=== PATIENT | female | born 1985 | race Caucasian/White ===

== ENCOUNTER 2018-02-04 19:58 | Inpatient (IN) | payer BC, OTHER ==
[2018-02-04] MEDS ORDERED: DINOPROSTONE 10 MG VAGINAL SUPPOSITORY VG ONE (21:00)
--- NOTE | 2018-02-04 21:06 | HP ---
Past Medical History - Primary Care Physician PCP:: Foster Mooney - Admission Chief Complaint: 40 weeks, htn, obesity , for labor induction History of Present Illness: 32 yo f edc 02/04/18 40 weeks with claude 140/93, 150/100. 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 ...: 1 ...Para: 0 ...EDC by Sono: 02/04/18 - Past Surgical History Hx Myomectomy: No Hx Transabdominal Cerclage: No - Smoking History Smoking history: Never smoked Have you smoked in the past 12 months: No Aproximately how many cigarettes per day: 0 - Alcohol/Substance Use Hx Alcohol Use: No - Social History Usual Living Arrangement: Yes: With Spouse History of Recent Travel: No Home Medications - Allergies Allergies/Adverse Reactions: Allergies Allergy/AdvReac Type Severity Reaction Status Date / Time No Known Allergies Allergy Verified 01/24/18 11:43 - Home Medications Home Medications: Ambulatory Orders Vitamins (Sjr) - 1 tab PO DAILY 10/30/17 Amoxicillin - [Amoxicillin 500mg Capsule -] 500 mg PO BID 01/24/18 Review of Systems - Review of Systems Constitutional: reports: No Symptoms Eyes: reports: No Symptoms HENT: reports: No Symptoms Neck: reports: No Symptoms Cardiovascular: reports: No Symptoms Respiratory: reports: No Symptoms Gastrointestinal: reports: No Symptoms Genitourinary: reports: No Symptoms Breasts: reports: No Symptoms Reported Musculoskeletal: reports: No Symptoms Integumentary: reports: No Symptoms Neurological: reports: No Symptoms Endocrine: reports: No Symptoms Hematology/Lymphatic: reports: No Symptoms Psychiatric: reports: No Symptoms Physical Exam - Maternity Constitutional: Yes: Well Nourished, No Distress, Calm Eyes: Yes: WNL, Conjunctiva Clear, EOM Intact HENT: Yes: WNL, Atraumatic, Normocephalic Neck: Yes: WNL, Supple, Trachea Midline Cardiovascular: Yes: WNL, Regular Rate and Rhythm Breast(s): Yes: WNL - Abdominal Exam/OB Fundal Height: 40 Number of Fetuses: Single Presentation: Vertex Contractions: No Intensity: Unaware Monitor Mode: External Heart Rate Location: LLQ Accelerations: Uniform Decelerations: None - Vaginal Exam/OB Vaginal Bleediing: No Speculum Exam: No Dilatation (cm): 0 Effacement (%): 0 Amniotic Membrane Status: Intact Presentation: Vertex/Position Station: -3 - Physical Exam Musculoskeletal: Yes: WNL Edema: Yes Edema: LLE: 1+, RLE: 1+ Deep Tendon Reflex Grade: Normal +2 ...Motor Strength: WNL Psychiatric: Yes: WNL Hemorrhage Risk Assessment - Risk Factors Medium Risk Factors: Yes: None High Risk Factors: Yes: None Risk Score: 1 Risk Level: Medium Risk Problem List - Problems (1) 40 weeks gestation of Code(s): Z3A.40 - 40 WEEKS GESTATION OF (2) Gestational [-induced] hypertension without significant proteinuria , complicating childbirth Code(s): O13.4 - GESTATNL HTN WITHOUT SIGNIFICANT PROTEIN, COMP CHILDBIRTH (3) Obesity (BMI 30.0-34.9) Code(s): E66.9 - OBESITY, UNSPECIFIED Assessment/Plan admit, monitor FH and BP, hellp profile cervidil induction, rba discussed if BP cont to be elevated ,MGSO$
[2018-02-04 21:28] LABS: RETICULOCYTES 2.31 % (0.5-1.5)
[2018-02-04 21:29] LABS: BASO % 0.2 % (0-2.0); HEMATOCRIT 31.8 % (32.4-45.2); HEMOGLOBIN 10.7 GM/dL (10.7-15.3); LYMPH % 16.9 % (8-40); MCH 29.1 pg (25.7-33.7); MCHC 33.6 g/dl (32.0-36.0); MEAN CELL VOLUME 86.8 fl (80-96); MEAN PLT VOLUME 9.5 fl (7.5-11.1); MONO % 6.8 % (3.8-10.2); NEUT % 75.1 % (42.8-82.8); PLATELET COUNT 237 K/MM3 (134-434); RBC 3.67 M/mm3 (3.60-5.2); RDW 16.2 % (11.6-15.6); WHITE BLOOD COUNT 11.8 K/mm3 (4.0-10.0)
[2018-02-04] MEDS ORDERED: ELECTROLYTE-148 SOLN 1,000 ML IV SCH ×3 (21:30→23:45)
[2018-02-04] MEDS ORDERED: TUBERCULIN PPD 5 TU/0.1ML SYRINGE (IN PATIENT USE ONLY) ID ONE (21:30)
[2018-02-04 21:41] LABS: URINE APPEARANCE SLCLOUDY; URINE BILIRUBIN NEGATIVE (NEGATIVE); URINE BLOOD NEGATIVE (NEGATIVE); URINE COLOR YELLOW; URINE GLUCOSE (UA) NEGATIVE (NEGATIVE); URINE KETONE NEGATIVE (NEGATIVE); URINE LEUK ESTERASE NEGATIVE (NEGATIVE); URINE NITRITE NEGATIVE (NEGATIVE); URINE PROTEIN 2+ (NEGATIVE); URINE UROBILINOGEN NEGATIVE mg/dL (0.2-1.0)
[2018-02-04 21:51] LABS: INR 0.93 (0.82-1.09); PROTHROMBIN TIME (PATIENT) 10.5 SEC (9.98-11.88)
[2018-02-04 21:52] LABS: EPI CELLS FEW /HPF (FEW); URINE BACTERIA RARE /hpf (NONE SEEN); URINE HYALINE CAST 1 /lpf; URINE MUCUS MANY
[2018-02-04 21:54] LABS: ACTIVATED PTT 23.6 SECONDS (26.9-34.4)
[2018-02-04 22:02] VITALS: BMI 45.4
[2018-02-04 22:03] LABS: ANION GAP 10 (8-16); BLOOD UREA NITROGEN 14 mg/dL (7-18); CALCIUM 8.3 mg/dL (8.5-10.1); CHLORIDE 109 mmol/L (98-107); CO2 23 mmol/L (21-32); CREATININE 0.8 mg/dL (0.55-1.02); GAMMA GLUTAMYL TRANSPEPTIDASE 9 U/L (5-85); GLUCOSE,RANDOM 94 mg/dL (74-106); SGOT/AST 15 U/L (15-37); SGPT/ALT 14 U/L (12-78); SODIUM 142 mmol/L (136-145); URIC ACID 4.1 mg/dL (2.6-7.2)
[2018-02-04] MEDS ORDERED: MAGNESIUM SULFATE 20GM/500ML - 20 GM/500 ML INFUS.BAG ONE (23:32)
[2018-02-04] MEDS ORDERED: MAGNESIUM 4GM/H20 - 4 GM/100 ML IVPB IVPB ONE ×2 (23:32→23:45)
[2018-02-04] MEDS ORDERED: MAGNESIUM SULFATE 20GM/500ML - 20 GM/500 ML INFUS.BAG IVPB SCH (23:45)
[2018-02-05] MEDS ORDERED: AMPICILLIN SODIUM 2 GM VIAL ONE (06:21)
[2018-02-05] MEDS ORDERED: AMPICILLIN - 2 GM in SODIUM CHLORIDE 100 ML IVPB ONE (06:30)
--- NOTE | 2018-02-05 08:41 | PN ---
Progress Note (short form) - Note Progress Note: cx closed , 50 vx -3 mi, fhr cat 1, contraction q 3 min crvidil removed no headache Last Vital Signs Temp Pulse Resp BP Pulse Ox 97.7 F 82 20 140/79 02/05/18 08:00 02/05/18 08:00 02/05/18 08:00 02/05/18 08:00 Problem List - Problems (1) 40 weeks gestation of Code(s): Z3A.40 - 40 WEEKS GESTATION OF (2) Gestational [-induced] hypertension without significant proteinuria , complicating childbirth Code(s): O13.4 - GESTATNL HTN WITHOUT SIGNIFICANT PROTEIN, COMP CHILDBIRTH (3) Obesity (BMI 30.0-34.9) Code(s): E66.9 - OBESITY, UNSPECIFIED
--- NOTE | 2018-02-05 09:49 | PN ---
Ante-Partal Exam - Subjective Subjective: No complaints Vital Signs: Vital Signs Temperature 98.0 F 02/05/18 09:00 Pulse Rate 84 02/05/18 09:00 Respiratory Rate 20 02/05/18 09:00 Blood Pressure 159/94 02/05/18 09:00 O2 Sat by Pulse Oximetry (%) Bleeding: No Headache: No Visual changes: No Right upper quadrant pain: No Pain (scale 1-10): 0 - Contractions Contractions: Yes (5min) Regularity: Irregular Intensity: Mild Monitor Mode: External - Exam during Labor Heart Rate: 110 Variability: Moderate Heart Rate Location: Midline Category: I (moderate variability) Monitor Accelerations: Present Monitor Decelerations: None Amniotic Membrane Status: Intact Presentation: Vertex - Intrapartum Hemorrhage Risk Medium Risk Factors: None High Risk Factors: None Risk Score: 0 Risk Level: Low Risk - Assessment/Plan Assessment/Plan: 32yo P0 with preeclampsia admitted for labor indx. Pt is s/p Cervidil that was removed at 8:40 am. pt is not in labor. tracing is Category I. Plan is to start pitocin. Shailesh discussed the risks, benefits and alternatives of pitocin, including but not limited to tachysystole, distress, uterine atony, emergent C/S, hemorrhage, etc. The pt agreed.
[2018-02-05] MEDS: AMPICILLIN - 1 GM in SODIUM CHLORIDE 100 ML IVPB SCH ×2 (10:30→14:10)
[2018-02-05] MEDS ORDERED: DEXTROSE 5%-LACTATED RINGERS 1,000 ML IV SCH ×2 (11:00→15:45)
[2018-02-05] MEDS ORDERED: ELECTROLYTE-148 SOLN 1,000 ML IV SCH (11:00)
[2018-02-05] MEDS ORDERED: OXYTOCIN 20 UNITS in 0.9% NS 20 UNIT/1,000 ML INFUS.BAG IV ONE ×2 (11:00→17:24)
[2018-02-05] MEDS ORDERED: OXYTOCIN 30 UNITS in 0.9% NS 30 UNIT/500 ML INFUS.BAG IVPB SCH (11:00)
--- NOTE | 2018-02-05 14:09 | PN ---
Progress Note (short form) - Note Progress Note: cx closed 50 vx -3 mi, fhr cat 1, contraction q 3 min. Last Vital Signs Temp Pulse Resp BP Pulse Ox 97.6 F 91 H 20 139/93 02/05/18 12:00 02/05/18 13:00 02/05/18 13:00 02/05/18 13:00 c/s rbs discussed Problem List - Problems (1) 40 weeks gestation of Code(s): Z3A.40 - 40 WEEKS GESTATION OF (2) Gestational [-induced] hypertension without significant proteinuria , complicating childbirth Code(s): O13.4 - GESTATNL HTN WITHOUT SIGNIFICANT PROTEIN, COMP CHILDBIRTH (3) Obesity (BMI 30.0-34.9) Code(s): E66.9 - OBESITY, UNSPECIFIED
[2018-02-05] MEDS ORDERED: ceFAZolin SODIUM 1 GM VIAL ONE (14:22)
[2018-02-05] MEDS ORDERED: morphine SULFATE/Preservative Free 0.5 MG/ML (1cc Syringe) ONE (14:22)
[2018-02-05] MEDS ORDERED: CITRIC ACID/SODIUM CITRATE 30 ML UNIT-DOSE CUP PO ONE (14:31)
[2018-02-05] MEDS ORDERED: morphine SULFATE/Preservative Free 0.5 MG/ML (1cc Syringe) SPIN ONE (14:42)
[2018-02-05] MEDS ORDERED: IBUPROFEN 600 MG TABLET (FP) PO PRN (14:51)
[2018-02-05] MEDS ORDERED: ONDANSETRON 4 MG/2 ML VIAL IVPUSH PRN (14:51)
[2018-02-05] MEDS ORDERED: OXYTOCIN 10 UNITS/ML VIAL ONE (15:11)
[2018-02-05] MEDS ORDERED: ePHEDrine SULFATE 50 MG/1 ML AMPULE ONE (15:15)
[2018-02-05] MEDS ORDERED: SODIUM CHLORIDE 0.9% P/F 10 ML VIAL IJ ONE (15:16)
[2018-02-05] MEDS ORDERED: METHYLERGONOVINE MALEATE 0.2 MG/1 ML AMP IM PRN (15:37)
[2018-02-05] MEDS ORDERED: WITCH HAZEL 50% (TUCKS) 40 PAD/JAR PAD TP PRN (15:37)
[2018-02-05] MEDS ORDERED: BENZOCAINE 28 GM HEMORRHOIDAL OINTMENT PR PRN (15:37)
[2018-02-05] MEDS ORDERED: diphenhydrAMINE HCL 25 MG CAPSULE (FP) PO PRN (15:37)
[2018-02-05] MEDS ORDERED: BENZOCAINE 20% 57 GM BOTTLE TP PRN (15:37)
[2018-02-05 15:38] LABS: VENOUS PH 7.37 (7.32-7.42)
[2018-02-05] MEDS ORDERED: OXYTOCIN 20 UNITS in 0.9% NS 20 UNIT/1,000 ML INFUS.BAG IV SCH (15:45)
[2018-02-05 15:51] LABS: ARTERIAL BLOOD GAS BASE EXCESS -2.1 meq/l (-2-2); ARTERIAL BLOOD GAS PCO2 52.6 mmHg (35-45); ARTERIAL BLOOD GAS pH 7.3 (7.35-7.45)
[2018-02-05 15:58] LABS: ARTERIAL BLOOD GAS PO2 12.3 mmHg (80-100)
[2018-02-05] MEDS ORDERED: ACETAMINOPHEN INJECTION 100 ML IVPB ONE (17:24)
[2018-02-05] MEDS: ACETAMINOPHEN 1000 MG/100 ML VIAL (NON FORMULARY) IVPB PRN ×2 (17:30→22:49)
[2018-02-05] MEDS: CEFAZOLIN 1 GM/D5W 1 GM/50 ML BAG IVPB SCH (22:00)
[2018-02-06] MEDS: LABETALOL HCL 200 MG TABLET (FP) PO PRN ×2 (02:01→13:42)
[2018-02-06] MEDS: ACETAMINOPHEN 1000 MG/100 ML VIAL (NON FORMULARY) IVPB PRN (04:57)
[2018-02-06] MEDS: CEFAZOLIN 1 GM/D5W 1 GM/50 ML BAG IVPB SCH (06:19)
[2018-02-06 08:14] LABS: BASO % 0.2 % (0-2.0); EOS % 0.2 % (0-4.5); HEMATOCRIT 30.7 % (32.4-45.2); HEMOGLOBIN 10.2 GM/dL (10.7-15.3); LYMPH % 8.3 % (8-40); MCH 28.7 pg (25.7-33.7); MCHC 33.1 g/dl (32.0-36.0); MEAN CELL VOLUME 86.8 fl (80-96); MEAN PLT VOLUME 9.1 fl (7.5-11.1); MONO % 6.1 % (3.8-10.2); NEUT % 85.2 % (42.8-82.8); PLATELET COUNT 229 K/MM3 (134-434); RBC 3.54 M/mm3 (3.60-5.2); RDW 16.6 % (11.6-15.6); WHITE BLOOD COUNT 14.9 K/mm3 (4.0-10.0)
[2018-02-06] MEDS: SIMETHICONE 80 MG TAB.CHEW (FP) PO PRN ×5 (08:47→22:54)
[2018-02-06] MEDS: oxyCODONE HCL 5 MG TABLET PO PRN ×5 (08:47→22:53)
[2018-02-06] MEDS: ACETAMINOPHEN 325 MG TABLET (FP) PO PRN ×5 (08:48→22:54)
--- NOTE | 2018-02-06 09:34 | PN ---
Progress Note (short form) - Note Progress Note: pod 1 , s/p c/s,PIH doing well, ambulating, no headache, no blurred vision recived one dose of labetalol last night CBC, BMP 02/06/18 07:30 02/04/18 21:10 Last Vital Signs Temp Pulse Resp BP Pulse Ox 98.0 F 87 18 134/91 98 02/06/18 06:00 02/06/18 06:00 02/06/18 06:00 02/06/18 06:00 02/05/18 18:45 abdomen soft, no distension, no cva no RUQ tenderness incision dry, clean no calf tenderness 1+ edema DTR normal pod1 afebrile , BP stable plan monitor BP , advance diet ,ambulate Problem List - Problems (1) 40 weeks gestation of Code(s): Z3A.40 - 40 WEEKS GESTATION OF (2) Gestational [-induced] hypertension without significant proteinuria , complicating childbirth Code(s): O13.4 - GESTATNL HTN WITHOUT SIGNIFICANT PROTEIN, COMP CHILDBIRTH (3) Obesity (BMI 30.0-34.9) Code(s): E66.9 - OBESITY, UNSPECIFIED
[2018-02-06] MEDS ORDERED: BISACODYL 10 MG SUPP.RECT PR PRN (15:37)
--- NOTE | 2018-02-06 15:37 | PN ---
Progress Note (short form) - Note Progress Note: Anesthesiology 32 y.o. with known gestational HTN POD#1 s/p C/S under spinal anesthesia. Pt. feels well. Pain is being managed with PO meds. BP still elevated and being managed with Labetalol. No n/v or h/a. Able to move legs. 32 y.o. s/p C/S with ongoing gestational HTN. Continue current management as per primary team.
[2018-02-06] MEDS ORDERED: LABETALOL HCL 200 MG TABLET (FP) PO ONE (18:45)
[2018-02-07] MEDS: ACETAMINOPHEN 325 MG TABLET (FP) PO PRN ×6 (03:52→23:54)
[2018-02-07] MEDS: SIMETHICONE 80 MG TAB.CHEW (FP) PO PRN ×5 (03:52→23:52)
[2018-02-07] MEDS: oxyCODONE HCL 5 MG TABLET PO PRN ×6 (03:52→23:53)
[2018-02-07] MEDS: LABETALOL HCL 200 MG TABLET (FP) PO PRN ×3 (09:31→21:31)
--- NOTE | 2018-02-07 15:08 | PN ---
Progress Note (short form) - Note Progress Note: pod 3. s/p c/s , HTN no headache, no blurred vision CBC, BMP 02/06/18 07:30 02/04/18 21:10 Last Vital Signs Temp Pulse Resp BP Pulse Ox 98.4 F 102 H 20 148/99 98 02/07/18 13:33 02/07/18 13:33 02/07/18 13:33 02/07/18 14:32 02/05/18 18:45 abdomen soft, non tender , no cva incision dry, clean no calf tenderness lochia mild pod 3 , on labatalol ,BP controlled, asymptomatic plan cont labatalol, advised follow up with pcp for HTN Problem List - Problems (1) 40 weeks gestation of Code(s): Z3A.40 - 40 WEEKS GESTATION OF (2) Gestational [-induced] hypertension without significant proteinuria , complicating childbirth Code(s): O13.4 - GESTATNL HTN WITHOUT SIGNIFICANT PROTEIN, COMP CHILDBIRTH (3) Obesity (BMI 30.0-34.9) Code(s): E66.9 - OBESITY, UNSPECIFIED
[2018-02-07] MEDS: SENNOSIDES/DOCUSATE COMBO (SENNA PLUS) TABLET (UD) PO PRN (21:31)
[2018-02-08] MEDS: ACETAMINOPHEN 325 MG TABLET (FP) PO PRN ×5 (06:14→23:46)
[2018-02-08] MEDS: SIMETHICONE 80 MG TAB.CHEW (FP) PO PRN ×4 (06:14→21:22)
[2018-02-08] MEDS: oxyCODONE HCL 5 MG TABLET PO PRN ×4 (06:14→21:23)
--- NOTE | 2018-02-08 07:27 | DS ---
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 Signs: Vital Signs Temperature 98.4 F 02/07/18 21:00 Pulse Rate 94 H 02/08/18 06:00 Respiratory Rate 20 02/08/18 06:00 Blood Pressure 138/94 02/08/18 06:00 O2 Sat by Pulse Oximetry (%) 98 02/05/18 18:45 Constitutional: Yes: Well Nourished, No Distress, Calm Eyes: Yes: WNL, Conjunctiva Clear, EOM Intact HENT: Yes: WNL, Atraumatic, Normocephalic Neck: Yes: WNL, Supple, Trachea Midline Cardiovascular: Yes: WNL, Regular Rate and Rhythm Respiratory: Yes: WNL, Regular, CTA Bilaterally Gastrointestinal: Yes: WNL ...Rectal Exam: Yes: WNL Renal/: Yes: WNL ....Post : Yes: Uterus firm, Uterus non-tender, Slight lochia rubra Breast(s): Yes: WNL Musculoskeletal: Yes: WNL Extremities: Yes: WNL Edema: Yes Edema: LLE: Trace, RLE: Trace Integumentary: Yes: WNL Wound/Incision: Yes: Clean/Dry, Well Approximated, Sutures Intact, Steri Strips Neurological: Yes: WNL, Alert, Oriented ...Motor Strength: WNL Psychiatric: Yes: WNL, Alert, Oriented Labs: CBC, BMP 02/06/18 07:30 02/04/18 21:10 Delivery - Delivery Section: Primary, Low Flap Transverse (no complication) Type of Anesthesia: Spinal Episiotomy/Laceration: None EBL (cc): 700 Delivery, Single - Stages of Labor Date of Delivery: 02/05/18 Time of Delivery: 14:56 Time Placenta Delivered: 14:57 Placenta: Yes: Expressed - Condition of Infant Esl Tutor/Residential Collections Present: Yes Name: Marquita Dawson Gender: Female Weight: 7 lb Position: Right, OP Total Hours ROM (Hrs/Mins): 0/2 - 1 Minute Total Score: 9 5 Minutes Total Score: 9 - Feeding Plan Initial Plan: Elected not to breastfeed exclusively throughout hospitalization Discharge Summary Reason For Visit: LABOR Current Active Problems 40 weeks gestation of (Acute) Gestational [-induced] hypertension without significant proteinuria, complicating childbirth (Acute) Obesity (BMI 30.0-34.9) (Acute) Procedures: Principal: primary LST c/s Condition: Good - Instructions Diet, Activity, Other Instructions: regular diet, follow up office 1 week if headache, fever . pain call MD Disposition: HOME - Home Medications Comprehensive Discharge Medication List: Ambulatory Orders Vitamins (Sjr) - 1 tab PO DAILY 10/30/17 Ibuprofen [Motrin -] 600 mg PO QID #28 tablet 02/07/18 Labetalol HCl [Normodyne -] 200 mg PO TID #60 tablet 02/07/18 Oxycodone HCl/Acetaminophen [Percocet 5-325 mg Tablet] 2 tab PO Q6H PRN #20 tablet MDD 4 02/07/18
[2018-02-08 08:16] LABS: BASO % 0.3 % (0-2.0); EOS % 1.6 % (0-4.5); HEMATOCRIT 29.1 % (32.4-45.2); HEMOGLOBIN 9.7 GM/dL (10.7-15.3); LYMPH % 18.3 % (8-40); MCH 29.2 pg (25.7-33.7); MCHC 33.2 g/dl (32.0-36.0); MEAN CELL VOLUME 87.8 fl (80-96); MEAN PLT VOLUME 8.4 fl (7.5-11.1); MONO % 7.3 % (3.8-10.2); NEUT % 72.5 % (42.8-82.8); PLATELET COUNT 265 K/MM3 (134-434); RBC 3.32 M/mm3 (3.60-5.2); RDW 16.7 % (11.6-15.6); WHITE BLOOD COUNT 10.4 K/mm3 (4.0-10.0)
[2018-02-08] MEDS: LABETALOL HCL 200 MG TABLET (FP) PO PRN ×3 (08:28→21:22)
--- NOTE | 2018-02-08 18:33 | PN ---
Progress Note (short form) - Note Progress Note: pod 3 , no c/o htn on labetalol asymptomatic . passing gas , had BM abdomen soft,, no distension, no cva incision dry, clean no calf tenderness plan , cont labetalol , if bp ok d/c home in am Problem List - Problems (1) 40 weeks gestation of Code(s): Z3A.40 - 40 WEEKS GESTATION OF (2) Gestational [-induced] hypertension without significant proteinuria , complicating childbirth Code(s): O13.4 - GESTATNL HTN WITHOUT SIGNIFICANT PROTEIN, COMP CHILDBIRTH (3) Obesity (BMI 30.0-34.9) Code(s): E66.9 - OBESITY, UNSPECIFIED
[2018-02-08] MEDS: SENNOSIDES/DOCUSATE COMBO (SENNA PLUS) TABLET (UD) PO PRN (20:09)
[2018-02-09] MEDS: oxyCODONE HCL 5 MG TABLET PO PRN ×2 (00:48→06:07)
[2018-02-09] MEDS: SIMETHICONE 80 MG TAB.CHEW (FP) PO PRN (06:07)
[2018-02-09] MEDS: LABETALOL HCL 200 MG TABLET (FP) PO PRN (06:14)
[2018-02-09] MEDS: ACETAMINOPHEN 325 MG TABLET (FP) PO PRN (08:33)
--- NOTE | 2018-02-09 09:22 | PN ---
Post Progress Note - Subjective Subjective: 32yo P1 s/p primary c/section, POD # 4 Post Day: 4 Type of Delivery: Primary C/S Vital Signs: Vital Signs Temperature 98.4 F 02/09/18 06:11 Pulse Rate 87 02/09/18 06:11 Respiratory Rate 20 02/09/18 06:11 Blood Pressure 146/84 02/09/18 06:11 O2 Sat by Pulse Oximetry (%) 98 02/05/18 18:45 Breast Exam: Yes: Soft Uterus: Yes: Fundus Firm Incision: Yes: Sutures intact Abdomen/GI: Yes: Abdomen soft, Passing flatus Lochia: Yes: Rubra Lochia, amount: Small Extremities: Yes: Calves non-tender Activity: Ambulating - Labs Labs: CBC WBC 10.4 K/mm3 (4.0-10.0) H D 02/08/18 07:20 RBC 3.32 M/mm3 (3.60-5.2) L 02/08/18 07:20 Hgb 9.7 GM/dL (10.7-15.3) L 02/08/18 07:20 Hct 29.1 % (32.4-45.2) L 02/08/18 07:20 MCV 87.8 fl (80-96) 02/08/18 07:20 MCH 29.2 pg (25.7-33.7) 02/08/18 07:20 MCHC 33.2 g/dl (32.0-36.0) 02/08/18 07:20 RDW 16.7 % (11.6-15.6) H 02/08/18 07:20 Plt Count 265 K/MM3 (134-434) 02/08/18 07:20 MPV 8.4 fl (7.5-11.1) 02/08/18 07:20 Neutrophils % 72.5 % (42.8-82.8) 02/08/18 07:20 Lymphocytes % 18.3 % (8-40) D 02/08/18 07:20 Monocytes % 7.3 % (3.8-10.2) 02/08/18 07:20 Eosinophils % 1.6 % (0-4.5) D 02/08/18 07:20 Basophils % 0.3 % (0-2.0) 02/08/18 07:20 Retic Count 2.31 % (0.5-1.5) H 02/04/18 21:10 Haptoglobin 117 mg/dL (34-200) 02/04/18 21:10 Assessment/Plan 32 yo P1 s/p 1' c/section doing well VSS, afibrile Doing well d/c home NPV for 6 wks RTO 1 week signes of PEC d/w patient
[2018-02-09 10:39] VITALS: BP 138/86; PULSE 98; TEMP 97.8
--- NOTE | 2018-02-10 13:56 | PATH ---
Surgical Pathology Report Patient Name: RILEY AGUIRRE [facility]. Rec. 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 Specimen(s) Received PLACENTA Clinical History , PCOS, fibrocystic breasts, high blood pressure Final Diagnosis PLACENTA, SECTION: 608 g THIRD TRIMESTER PLACENTA WITH TRIVASCULAR UMBILICAL CORD AND UNREMARKABLE PLACENTAL MEMBRANES. Electronically Signed Shanell Ulloa M.D. Gross Description The specimen is received fresh labeled placenta and is a 608 gram, 17.0 x 16.5 x 2.3 cm. placenta with attached membranes and umbilical cord. The attached membranes are jaramillo, translucent with focal opacities and insert marginally. The umbilical cord measures 12 cm. in length and averages 1 cm. in diameter. The cord inserts eccentrically, 5 cm. to the nearest margin. No true knots or strictures are identified. Cut surface of the umbilical cord reveals 3 vessels. The surface is maynard blue with moderate fibrin deposition and appropriate caliber vessels. The maternal surface is red-brown with focal defects. Sectioning reveals red-brown, spongy parenchyma. No lesions are identified. Perforating Machine Operator sections are submitted in three cassettes as follows: 1- membrane rolls and umbilical cord; 2-3- full thickness sections of placenta. 02/09/2018 [facility]02/09/2018
== END 2018-02-09 11:00 | disposition home or self-care (01) | DRG 765 ==
LOC: JDEL 19:58 → JLDR 20:20 → J3W 02-05 21:46
PROVIDERS: ADMIT Obstetrics & Gynecology; ATTEND Obstetrics & Gynecology
PROC: 3E0P7VZ Introduction of Hormone into Female Reproductive, Via Natural or Artificial Opening (ICD-10-PCS; 2018-02-04)
PROC: 10D00Z1 Extraction of Products of Conception, Low, Open Approach (ICD-10-PCS; principal; 2018-02-05)
DX: O48.0 Post-term pregnancy (principal); Z68.42 Body mass index [BMI] 45.0-49.9, adult; O13.4 Gestational [pregnancy-induced] hypertension without significant proteinuria, complicating childbirth; O99.214 Obesity complicating childbirth; E66.01 Morbid (severe) obesity due to excess calories; Z3A.40 40 weeks gestation of pregnancy; Z37.0 Single live birth
CPT/HCPCS: 36415; 36600; 80048; 81003; 81015; 82803; 82977; 83010; 83735; 84450; 84460; 84550; 85025; 85032; 85044; 85610; 85730; 86593; 86850; 86900; 86901; 88307-TC; J0131